=== PATIENT | male | born 1995 | race Caucasian/White ===

== ENCOUNTER 2017-07-21 13:02 | Emergency (ER) | payer OTHER ==
[~2017-07-21] VITALS: Ht 170.2 cm; Wt 82.1 kg
[2017-07-21 14:43] VITALS: BP 135/64
== END 2017-07-21 14:43 | disposition home or self-care (01) ==
LOC: ED 13:02
DX: S71.131A Puncture wound without foreign body, right thigh, initial encounter (principal); W34.09XA Accidental discharge from other specified firearms, initial encounter; Y93.89 Activity, other specified; Y99.8 Other external cause status; Y92.89 Other specified places as the place of occurrence of the external cause